=== PATIENT | male | born 1980 | race Caucasian/White ===

== ENCOUNTER 2017-02-09 16:59 | Day surgery (SDCO) | payer MEDICAID ==
[~2017-02-09] VITALS: Ht 176.5 cm; Wt 96.4 kg
[2017-02-09 17:19] LABS: BASOPHIL 0.6 % (0-2); EOSINOPHIL 4.5 % (0-5); HCT 44.6 % (42.0-52.0); HGB 15.9 g/dl (13.2-18.0); LYMPHOCYTE 35.2 % (15-48); MCH 29.1 pg (25.0-31.0); MCHC 35.7 g/dL (32.0-36.0); MCV 81.7 fL (78.0-100.0); MONOCYTE 7.6 % (0-12); MPV 10.3 fL (6.0-9.5); NEUTROPHIL 52.1 % (41-80); PLT 287 K/uL (150-400); RBC 5.46 M/uL (4.70-6.00); RDW 13.8 % (11.5-14.0); WBC 10.4 K/uL (4.0-10.5)
[2017-02-09 17:28] LABS: INR 0.99 (0.9-1.2); PROTHROMBIN TIME 12.7 SECONDS (11.7-14.0)
[2017-02-09 17:36] LABS: ALBUMIN 4.7 g/dL (3.5-5.0); BILIRUBIN - TOTAL 0.2 mg/dL (0.1-1.0); GLOBULIN (CALCULATION) 3.2 g/dL (2.2-4.2); MAGNESIUM 2.05 mg/dL (1.40-2.10); POTASSIUM 4.1 mmol/L (3.5-5.1); TOTAL PROTEIN 7.9 g/dL (6.4-8.3)
[2017-02-09 17:39] LABS: CKMB 2.23 ng/mL (0.97-4.94); MYOGLOBIN 36 ng/mL (26-65); PRO-BNP 10 pg/mL (0-125); TROPONIN T < 0.010 ng/mL
[2017-02-09 18:31] LABS: AMPHETAMINES NEGATIVE (NEGATIVE); BARBITURATES NEGATIVE (NEGATIVE); BENZODIAZEPINES NEGATIVE (NEGATIVE); COCAINE NEGATIVE (NEGATIVE); MARIJUANA (THC) NEGATIVE (NEGATIVE); METHADONE NEGATIVE (NEGATIVE); TRICYCLIC ANTIDEPRESSANT NEGATIVE (NEGATIVE)
[2017-02-10 05:27] LABS: HCT 42.5 % (42.0-52.0); HGB 14.7 g/dl (13.2-18.0); MCH 28.5 pg (25.0-31.0); MCHC 34.6 g/dL (32.0-36.0); MCV 82.4 fL (78.0-100.0); MPV 10.6 fL (6.0-9.5); RBC 5.16 M/uL (4.70-6.00); RDW 13.8 % (11.5-14.0); WBC 7.3 K/uL (4.0-10.5)
[2017-02-10 05:48] LABS: POTASSIUM 4.4 mmol/L (3.5-5.1)
[2017-02-10] MEDS ORDERED: ASPIRIN325 MG PO (09:47)
[2017-02-10] MEDS ORDERED: LOPRESSOR25 MG PO (09:47)
--- NOTE | 2017-02-10 11:10 | NUR ---
IV SITE D/C'D;PRESSURE DRESSING APPLIED. PT TOLERATED WELL. D/C & RX INSTRUCTIONS GIVEN;PT VERBALIZED UNDERSTANDING. D/C FROM FACILTY
== END 2017-02-10 11:11 | disposition home or self-care (01) ==
LOC: FER 16:59 → FTCU 18:20
PROVIDERS: Emergency Medicine; Nurse Practitioner; ADMIT Internal Medicine
DX: I16.0 Hypertensive urgency (principal); F17.210 Nicotine dependence, cigarettes, uncomplicated; Z82.49 Family history of ischemic heart disease and other diseases of the circulatory system
CPT/HCPCS: 36415; 71010; 80048; 80053; 80305; 82550; 82553; 83735; 83874; 83880; 84484; 85025; 85379; 85610; 85730; 93005; G0378